=== PATIENT | male | born 1965 | race Caucasian/White ===

== ENCOUNTER → 2021-03-06 | Outpatient (CLI) | payer BC ==
--- NOTE | 2021-03-06 19:00 | CT ---
EXAMINATION TYPE: CT abdomen pelvis w con DATE OF EXAM: 03/06/2021 COMPARISON: None HISTORY: RUQ pain CT DLP: 1121.3 mGycm Automated exposure control for dose reduction was used. TECHNIQUE: Helical acquisition of images was performed from the lung bases through the pelvis. CONTRAST: Performed with Oral Contrast and with IV Contrast, patient injected with 100 mL of Isovue 300. FINDINGS: LUNG BASES: No significant abnormality is appreciated. LIVER/GB: No significant abnormality is appreciated. PANCREAS: No significant abnormality is seen. SPLEEN: No significant abnormality is seen. ADRENALS: No significant abnormality is seen. KIDNEYS: 5 cm cyst arising from the inferior pole of the left kidney. No hydronephrosis. No nephrolit hiasis. FREE AIR: No free air is visualized. RETROPERITONEAL ADENOPATHY: None visualized REPRODUCTIVE ORGANS: No significant abnormality is seen URINARY BLADDER: No significant abnormality is seen. PELVIC ADENOPATHY: None visualized. OSSEOUS STRUCTURES: Posterior spinal fusion at L4-L5. No significant abnormality is seen. BOWEL: There is masslike thickening of the cecum surrounding's of the mesentery. The appendix is upp er limit of normal for size. Appendix is upper limit of normal for size measuring 6mm. OTHER: Fat-containing umbilical hernia. IMPRESSION: 1. MASSLIKE THICKENING OF THE CECUM WITH SURROUNDING FAT STRANDING. RECOMMEND DIRECT VISUALIZATION. 2. THE APPENDIX IS UPPER LIMIT OF NORMAL FOR SIZE MEASURING APPROXIMATELY 6 MM IN DIAMETER.
== END | disposition home or self-care (01) ==
LOC: RADCTMAIN 16:52
PROVIDERS: ATTEND Physician Assistant
DX: R10.11 Right upper quadrant pain (principal); K63.89 Other specified diseases of intestine
CPT/HCPCS: 82565; 84520; 74177; 36415; Q9967

== ENCOUNTER 2024-04-28 06:46 | Day surgery (SDC) | payer BC ==
[~2024-04-28 06:46] MED LIST: LIDOCAINE 1% (10MG/ML) FOR IV START INTRADERMA PRN
[2024-04-28] MEDS: IV FLUID CONTINUATION 1,000 ML IV ONE (07:24)
[2024-04-28 07:25] VITALS: RESP 18; TEMP 97.2
[2024-04-28] MEDS: LACTATED RINGERS 1,000 ML IV SCH (07:36)
[2024-04-28 07:37] LABS: Glucose,Whole Blood 119 mg/dL (70-110)
[2024-04-28] MEDS ORDERED: PROPOFOL 10 MG/ML 20 ML VIAL IV ONE (08:01)
[2024-04-28] MEDS ORDERED: LIDOCAINE 1% INJ 10MG/ML (20 ML MDV) ONE (08:01)
--- NOTE | 2024-04-28 08:24 | P.OP ---
Date of Procedure: 04/28/24 Preoperative Diagnosis: Dysphagia Screening colonoscopy Postoperative Diagnosis: Antral gastritis Small sliding hiatal hernia Hemorrhoids Procedure(s) Performed: EGD Colonoscopy Anesthesia: MAC Surgeon: Jori Rod Pathology: other (Antrum, esophagus) Condition: stable Disposition: PACU Description of Procedure: Patient placed on the endoscopy table lateral position. He received IV sedation. T gastroscope was placed oropharynx passed in the esophagus and the stomach. Gastroscope cope was then placed through the pylorus. The first and second portion of the duodenum appeared normal. Scope was then brought back to the antrum this appeared minimal Flaim. A biopsy was performed. The scope was then retroflexed and the Mainer of the stomach appeared normal. There was a small sliding hiatal hernia. The GE junction was at 40 cm. The distal esophagus was minimal Flaim. A biopsy performed. The proximal esophagus appeared normal. Scope withdrawn the patient. Next digital rectal exams performed. There were external hemorrhoids noted. Prostate was symmetrical with nodules. Flexible colonoscope was then placed patient anus and passed throughout the entire colon. The ileocecal valve was visualized. The cecum, ascending and transverse colon appeared normal. The descending and sigmoid colon had a few scattered diverticuli. Scope was brought back to the rectum this appeared normal. Scope was withdrawn from patient.
[2024-04-28 08:47] VITALS: BP 129/80; PULSE 85
== END 2024-04-28 09:01 | disposition home or self-care (01) ==
LOC: ORWHC2ENDO 06:46
PROVIDERS: ATTEND Surgery
DX: K29.50 Unspecified chronic gastritis without bleeding (principal); Z12.11 Encounter for screening for malignant neoplasm of colon; K21.00 Gastro-esophageal reflux disease with esophagitis, without bleeding; K44.9 Diaphragmatic hernia without obstruction or gangrene; K64.8 Other hemorrhoids; E11.9 Type 2 diabetes mellitus without complications; M54.50 Low back pain, unspecified; Z79.4 Long term (current) use of insulin; Z79.899 Other long term (current) drug therapy
CPT/HCPCS: 88305; 45378; 43239; J2003; J2704